=== PATIENT | female | born 1970 | race Caucasian/White ===

== ENCOUNTER 2024-02-29 15:58 | Emergency (ER) | payer BC, OTHER ==
[~2024-02-29] VITALS: Ht 165.1 cm; Wt 74.8 kg
[2024-02-29] MEDS ORDERED: ACETAMINOPHEN ES 500 MG TABLET ONE (17:06)
[2024-02-29] MEDS: ACETAMINOPHEN ES 500 MG TABLET PO ONE (17:08)
[2024-02-29 18:48] VITALS: BP 12/79; TEMP 208.8; O2SAT 98
== END 2024-02-29 18:49 | disposition home or self-care (01) ==
LOC: ER 16:29
DX: S01.01XA Laceration without foreign body of scalp, initial encounter (principal); F10.129 Alcohol abuse with intoxication, unspecified; R51.9 Headache, unspecified; E03.9 Hypothyroidism, unspecified; W01.198A Fall on same level from slipping, tripping and stumbling with subsequent striking against other object, initial encounter; Y93.89 Activity, other specified; Y92.89 Other specified places as the place of occurrence of the external cause; Y99.8 Other external cause status
CPT/HCPCS: 99284; 72125; 12002; 70450; A6403

== ENCOUNTER 2024-03-10 07:14 | Emergency (ER) | payer OTHER ==
[~2024-03-10] VITALS: Ht 165.1 cm; Wt 68.0 kg
[2024-03-10 07:21] VITALS: BP 138/86; TEMP 98.1; O2SAT 99
== END 2024-03-10 07:34 | disposition home or self-care (01) ==
LOC: ER 07:17
DX: S01.01XD Laceration without foreign body of scalp, subsequent encounter (principal); E03.9 Hypothyroidism, unspecified; Z48.02 Encounter for removal of sutures; X58.XXXD Exposure to other specified factors, subsequent encounter